=== PATIENT | female | born 1960 | race Caucasian/White ===

== ENCOUNTER → 2018-03-21 | Day surgery (SDC) | payer OTHER ==
[~2018-03-21] MED LIST: HEPARIN 1000 UNITS/ML 10 ML INJ; LIDOCAINE 1% (MDV) 20 ML INJ
== END | disposition home or self-care (01) ==
LOC: ZBAR 07:20 → SDS 11:36
DX: I12.0 Hypertensive chronic kidney disease with stage 5 chronic kidney disease or end stage renal disease (principal); N18.6 End stage renal disease
CPT/HCPCS: 36558

== ENCOUNTER 2018-04-30 10:03 | Inpatient (IN) | payer MEDICARE, MEDICAID, OTHER ==
[2018-04-30] MEDS: CEFEPIME 2GM/50 ML (PMX) 50 ML IVPB (10:30)
[2018-04-30 10:32] LABS: ADD MAN DIFF? NO
[2018-04-30 10:34] LABS: WHITE BLOOD COUNT 21.6 10^3/ul (4.8-10.8)
[2018-04-30 10:34] LABS: ABNORMAL IP MESSAGE 1; BASOPHIL # 0.1 10^3/ul (0.0-0.1); BASOPHILS % 0.4 % (0.0-2.0); EOSINOPHILS # 0.3 10^3/ul (0.0-0.5); EOSINOPHILS % 1.3 % (0.0-7.0); HEMATOCRIT 22.7 % (37.0-47.0); LYMPHOCYTES # 1.5 10^3/ul (0.8-2.9); LYMPHOCYTES % 6.9 % (15.0-51.0); MEAN CORPUSCULAR HEMOGLOBIN 28.3 pg (29.0-33.0); MEAN CORPUSCULAR HGB CONC 30.8 g/dl (32.0-37.0); MEAN CORPUSCULAR VOLUME 91.9 fl (82.0-101.0); MEAN PLATELET VOLUME 9.5 fl (7.4-10.4); MONOCYTE # 2.2 10^3/ul (0.3-0.9); MONOCYTES % 10.3 % (0.0-11.0); NEUTROPHIL # 17.3 10^3/ul (1.6-7.5); NEUTROPHILS % 79.9 % (39.0-77.0); PLATELET COUNT 295 10^3/UL (140-415); RED BLOOD COUNT 2.47 10^6/ul (4.20-5.40); RED CELL DISTRIBUTION WIDTH 18.8 % (11.5-14.5)
[2018-04-30] MEDS: SODIUM CHLORIDE 0.9% 1L BAG IV* (10:38)
[2018-04-30 10:40] LABS: POSITIVE DIFF @See below
[2018-04-30] MEDS: VANCOMYCIN 1 GM (PMX) 250 ML IVPB (10:50)
[2018-04-30 10:52] LABS: ALANINE AMINOTRANSFERASE 25 IU/L (13-69); ALBUMIN/GLOBULIN RATIO 0.75; ALKALINE PHOSPHATASE 138 IU/L (42-121); ANION GAP 10 (5-13); ASPARTATE AMINO TRANSFERASE 28 IU/L (15-46); BLOOD UREA NITROGEN 45 mg/dl (7-20); CALCIUM 9.9 mg/dl (8.4-10.2); CARBON DIOXIDE 25 mmol/L (21-31); CHLORIDE 98 mmol/L (97-110); Estimated GFR 9 mL/min (>60); GLUCOSE 119 mg/dl (70-220); POTASSIUM 3.7 mmol/L (3.5-5.1); SODIUM 133 mmol/L (135-144)
[2018-04-30 10:54] LABS: INR 1.08; PROTIME 14.1 Sec (11.9-14.9); PT RATIO 1.1
[2018-04-30 10:55] LABS: PARTIAL THROMBOPLASTIN TIME 45.2 Sec (23.0-35.0)
[2018-04-30 11:04] LABS: TROPONIN-I 0.023 ng/ml (0.000-0.120)
[2018-04-30] MEDS: SOD CHLORIDE 0.9% 500 ML IV (11:30)
[2018-04-30] MEDS ORDERED: ACETAMINOPHEN 650MG/20.3ML CUP GTB (14:30)
[2018-04-30] MEDS ORDERED: MAGNESIUM HYDROXIDE 30ML CUP GTB (14:30)
[2018-04-30] MEDS ORDERED: NACL 0.9% 3 ML SYG IV (14:30)
[2018-04-30] MEDS ORDERED: BISACODYL 10 MG SUPP PR (14:30)
[2018-04-30] MEDS ORDERED: morphine 2 MG INJ IV (14:30)
[2018-04-30] MEDS ORDERED: ONDANSETRON 4 MG INJ IV (14:30)
[2018-04-30] MEDS ORDERED: VANCOMYCIN IV PER PHARMACY XX (15:00)
[2018-04-30 16:07] LABS: IRON 17 ug/dl (35-150)
[2018-04-30 16:17] LABS: % IRON SATURATION 12 % SAT (22-52); TOTAL IRON BINDING CAPACITY 146 ug/dl (241-421)
[2018-04-30] MEDS: VANCOMYCIN 1 GM 250 ML IVPB (16:24)
[2018-04-30] MEDS ORDERED: EPOETIN 10000 UNITS/1 ML INJ (ESRD) SC (17:00)
[2018-04-30] MEDS ORDERED: EPOETIN ALFA (NESRD) 3,000 UNITS/ML VIAL SC (17:00)
[2018-04-30 19:52] LABS: HEPATITIS B SURFACE ANTIBODY NEGATIVE (NEGATIVE)
[2018-04-30 20:04] LABS: HEPATITIS B SURFACE ANTIGEN NEGATIVE (NEGATIVE)
[2018-04-30] MEDS: METOPROLOL 50 MG TAB GTB (20:10)
[2018-05-01] MEDS ORDERED: VANCOMYCIN IV PER PHARMACY XX (05:30)
[2018-05-01 06:27] LABS: ADD MAN DIFF? NO
[2018-05-01 06:34] LABS: WHITE BLOOD COUNT 13.3 10^3/ul (4.8-10.8)
[2018-05-01 06:34] LABS: BASOPHILS % 0.2 % (0.0-2.0); EOSINOPHILS # 0.6 10^3/ul (0.0-0.5); EOSINOPHILS % 4.4 % (0.0-7.0); HEMATOCRIT 24.9 % (37.0-47.0); HEMOGLOBIN 7.6 g/dl (12.0-16.0); LYMPHOCYTES % 7.4 % (15.0-51.0); MEAN CORPUSCULAR HEMOGLOBIN 28.4 pg (29.0-33.0); MEAN CORPUSCULAR HGB CONC 30.5 g/dl (32.0-37.0); MEAN CORPUSCULAR VOLUME 92.9 fl (82.0-101.0); MEAN PLATELET VOLUME 9.7 fl (7.4-10.4); MONOCYTE # 0.7 10^3/ul (0.3-0.9); MONOCYTES % 5.4 % (0.0-11.0); NEUTROPHIL # 10.8 10^3/ul (1.6-7.5); NEUTROPHILS % 81.5 % (39.0-77.0); PLATELET COUNT 331 10^3/UL (140-415); RED BLOOD COUNT 2.68 10^6/ul (4.20-5.40); RED CELL DISTRIBUTION WIDTH 19.1 % (11.5-14.5)
[2018-05-01 06:55] LABS: LACTIC ACID 0.8 mmol/L (0.5-2.0)
[2018-05-01 07:03] LABS: ALANINE AMINOTRANSFERASE 38 IU/L (13-69); ALBUMIN 2.5 g/dl (3.3-4.9); ALBUMIN/GLOBULIN RATIO 0.69; ALKALINE PHOSPHATASE 113 IU/L (42-121); ANION GAP 11 (5-13); ASPARTATE AMINO TRANSFERASE 32 IU/L (15-46); BLOOD UREA NITROGEN 55 mg/dl (7-20); CARBON DIOXIDE 23 mmol/L (21-31); CHLORIDE 101 mmol/L (97-110); CHOL/HDL RATIO 6.5 RATIO; CHOLESTEROL 117 mg/dl (100-200); CREATININE 5.53 mg/dl (0.44-1.00); Estimated GFR 8 mL/min (>60); GLUCOSE 81 mg/dl (70-220); HDL CHOLESTEROL 18 mg/dl (35-98); LDL CHOLESTEROL,CALCULATED 77 mg/dl; MAGNESIUM 2.3 mg/dl (1.7-2.5); POTASSIUM 3.9 mmol/L (3.5-5.1); SODIUM 135 mmol/L (135-144); TOTAL PROTEIN 6.1 g/dl (6.1-8.1); TRIGLYCERIDES 112 mg/dl (0-149)
[2018-05-01] MEDS: METOPROLOL 50 MG TAB GTB ×2 (09:00→20:16)
[2018-05-01] MEDS: LISINOPRIL 10 MG TAB GTB (09:00)
[2018-05-01] MEDS: MULTIVIT/CA CARB/B CMPLX/FA TAB GTB (09:50)
[2018-05-01] MEDS: FAMOTIDINE 20 MG TAB GTB (09:51)
[2018-05-01] MEDS: ASPIRIN (EC) 81 MG TAB PO (09:51)
[2018-05-01] MEDS: POLYETHYLENE GLYCOL 17 GM PACKET GTB (09:51)
[2018-05-01] MEDS ORDERED: CEFEPIME 1GM/50 ML (PMX) 50 ML IVPB (10:00)
[2018-05-01] MEDS: HEPARIN 1000 UNITS/ML 10 ML INJ CATHETER (10:12)
[2018-05-01] MEDS: CEFEPIME 2GM/50 ML (PMX) 50 ML IVPB (11:14)
[2018-05-01] MEDS: SOD FERRIC GLUC COMPLX 125 MG in SOD CHLORIDE 0.9% 100 ML IVPB (12:14)
[2018-05-01] MEDS: EPOETIN 10000 UNITS/1 ML INJ (ESRD) SC (17:30)
[2018-05-02 06:12] LABS: ADD MAN DIFF? NO
[2018-05-02 06:23] LABS: WHITE BLOOD COUNT 11.7 10^3/ul (4.8-10.8)
[2018-05-02 06:23] LABS: BASOPHILS % 0.3 % (0.0-2.0); EOSINOPHILS % 8.1 % (0.0-7.0); HEMATOCRIT 25.2 % (37.0-47.0); HEMOGLOBIN 7.8 g/dl (12.0-16.0); LYMPHOCYTES % 8.5 % (15.0-51.0); MEAN CORPUSCULAR HEMOGLOBIN 28.4 pg (29.0-33.0); MEAN CORPUSCULAR VOLUME 91.6 fl (82.0-101.0); MEAN PLATELET VOLUME 9.8 fl (7.4-10.4); MONOCYTE # 0.8 10^3/ul (0.3-0.9); MONOCYTES % 6.8 % (0.0-11.0); NEUTROPHIL # 8.8 10^3/ul (1.6-7.5); NEUTROPHILS % 75.3 % (39.0-77.0); PLATELET COUNT 365 10^3/UL (140-415); RED BLOOD COUNT 2.75 10^6/ul (4.20-5.40); RED CELL DISTRIBUTION WIDTH 18.9 % (11.5-14.5)
[2018-05-02 06:56] LABS: VANCOMYCIN,RANDOM 16.9 ug/ml
[2018-05-02 07:09] LABS: ANION GAP 12 (5-13); BLOOD UREA NITROGEN 33 mg/dl (7-20); CALCIUM 10.1 mg/dl (8.4-10.2); CARBON DIOXIDE 26 mmol/L (21-31); CHLORIDE 100 mmol/L (97-110); CREATININE 4.95 mg/dl (0.44-1.00); Estimated GFR 9 mL/min (>60); GLUCOSE 85 mg/dl (70-220); POTASSIUM 4.1 mmol/L (3.5-5.1); SODIUM 138 mmol/L (135-144)
[2018-05-02] MEDS: METOPROLOL 50 MG TAB GTB ×2 (09:00→21:19)
[2018-05-02] MEDS: LISINOPRIL 10 MG TAB GTB (09:00)
[2018-05-02] MEDS: POLYETHYLENE GLYCOL 17 GM PACKET GTB (09:44)
[2018-05-02] MEDS: ASPIRIN (EC) 81 MG TAB PO (09:44)
[2018-05-02] MEDS: MULTIVIT/CA CARB/B CMPLX/FA TAB GTB (09:44)
[2018-05-02] MEDS: FAMOTIDINE 20 MG TAB GTB (09:44)
[2018-05-02] MEDS: CEFEPIME 2GM/50 ML (PMX) 50 ML IVPB (10:12)
[2018-05-02] MEDS: SOD FERRIC GLUC COMPLX 125 MG in SOD CHLORIDE 0.9% 100 ML IVPB (13:28)
[2018-05-02] MEDS: VANCOMYCIN HCL 1.25 GM in SOD CHLORIDE 0.9% 250 ML IVPB (15:47)
[2018-05-03 06:06] LABS: ADD MAN DIFF? NO
[2018-05-03 06:39] LABS: WHITE BLOOD COUNT 11.2 10^3/ul (4.8-10.8)
[2018-05-03 06:39] LABS: BASOPHILS % 0.3 % (0.0-2.0); EOSINOPHILS # 1.2 10^3/ul (0.0-0.5); EOSINOPHILS % 10.4 % (0.0-7.0); HEMATOCRIT 26.9 % (37.0-47.0); HEMOGLOBIN 8.2 g/dl (12.0-16.0); MEAN CORPUSCULAR HEMOGLOBIN 28.3 pg (29.0-33.0); MEAN CORPUSCULAR HGB CONC 30.5 g/dl (32.0-37.0); MEAN CORPUSCULAR VOLUME 92.8 fl (82.0-101.0); MEAN PLATELET VOLUME 9.9 fl (7.4-10.4); MONOCYTE # 0.6 10^3/ul (0.3-0.9); MONOCYTES % 5.7 % (0.0-11.0); NEUTROPHIL # 8.1 10^3/ul (1.6-7.5); NEUTROPHILS % 72.7 % (39.0-77.0); NUCLEATED RED BLOOD CELLS% 0.2 /100WBC (0.0-0.0); PLATELET COUNT 388 10^3/UL (140-415); RED CELL DISTRIBUTION WIDTH 18.8 % (11.5-14.5)
[2018-05-03 07:18] LABS: ANION GAP 9 (5-13); BLOOD UREA NITROGEN 22 mg/dl (7-20); CALCIUM 9.9 mg/dl (8.4-10.2); CARBON DIOXIDE 26 mmol/L (21-31); CHLORIDE 99 mmol/L (97-110); CREATININE 4.17 mg/dl (0.44-1.00); Estimated GFR 11 mL/min (>60); GLUCOSE 97 mg/dl (70-220); PHOSPHORUS 3.5 mg/dl (2.5-4.9); POTASSIUM 3.9 mmol/L (3.5-5.1); SODIUM 134 mmol/L (135-144)
[2018-05-03] MEDS: MULTIVIT/CA CARB/B CMPLX/FA TAB GTB (09:21)
[2018-05-03] MEDS: POLYETHYLENE GLYCOL 17 GM PACKET GTB (09:21)
[2018-05-03] MEDS: FAMOTIDINE 20 MG TAB GTB (09:21)
[2018-05-03] MEDS: ASPIRIN (EC) 81 MG TAB PO (09:21)
[2018-05-03] MEDS: METOPROLOL 50 MG TAB GTB ×2 (09:23→21:49)
[2018-05-03] MEDS: LISINOPRIL 10 MG TAB GTB (09:24)
[2018-05-03] MEDS: CEFEPIME 2GM/50 ML (PMX) 50 ML IVPB (10:49)
[2018-05-03] MEDS: SOD FERRIC GLUC COMPLX 125 MG in SOD CHLORIDE 0.9% 100 ML IVPB (13:00)
[2018-05-03] MEDS: EPOETIN 10000 UNITS/1 ML INJ (ESRD) SC (17:23)
[2018-05-04] MEDS: LISINOPRIL 10 MG TAB GTB (09:00)
[2018-05-04] MEDS: METOPROLOL 50 MG TAB GTB ×2 (09:00→20:36)
[2018-05-04] MEDS: ASPIRIN (EC) 81 MG TAB PO (09:14)
[2018-05-04] MEDS: MULTIVIT/CA CARB/B CMPLX/FA TAB GTB (09:14)
[2018-05-04] MEDS: FAMOTIDINE 20 MG TAB GTB (09:14)
[2018-05-04] MEDS: CEFEPIME 2GM/50 ML (PMX) 50 ML IVPB (09:15)
[2018-05-04] MEDS: POLYETHYLENE GLYCOL 17 GM PACKET GTB (09:15)
[2018-05-04] MEDS: SOD FERRIC GLUC COMPLX 125 MG in SOD CHLORIDE 0.9% 100 ML IVPB (13:42)
[2018-05-04] MEDS: HEPARIN 1000 UNITS/ML 10 ML INJ CATHETER (19:25)
[2018-05-05] MEDS: MULTIVIT/CA CARB/B CMPLX/FA TAB GTB (09:00)
[2018-05-05] MEDS: POLYETHYLENE GLYCOL 17 GM PACKET GTB (09:00)
[2018-05-05] MEDS: FAMOTIDINE 20 MG TAB GTB (09:40)
[2018-05-05] MEDS: ASPIRIN (EC) 81 MG TAB PO (09:40)
[2018-05-05] MEDS: METOPROLOL 50 MG TAB GTB ×2 (09:40→20:19)
[2018-05-05] MEDS: LISINOPRIL 10 MG TAB GTB (09:41)
[2018-05-05] MEDS: CEFEPIME 2GM/50 ML (PMX) 50 ML IVPB (10:38)
[2018-05-05] MEDS: SOD FERRIC GLUC COMPLX 125 MG in SOD CHLORIDE 0.9% 100 ML IVPB (12:05)
[2018-05-05] MEDS: VANCOMYCIN 1 GM 250 ML IVPB (13:31)
[2018-05-05] MEDS: AMPICILLIN 1 GM/NS (PMX) 50 ML IVPB (18:48)
[2018-05-06] MEDS: AMPICILLIN 1 GM/NS (PMX) 50 ML IVPB ×4 (00:08→17:09)
[2018-05-06] MEDS: FAMOTIDINE 20 MG TAB GTB (08:42)
[2018-05-06] MEDS: ASPIRIN (EC) 81 MG TAB PO (08:42)
[2018-05-06] MEDS: MULTIVIT/CA CARB/B CMPLX/FA TAB GTB (08:42)
[2018-05-06] MEDS: LISINOPRIL 10 MG TAB GTB (08:43)
[2018-05-06] MEDS: METOPROLOL 50 MG TAB GTB ×2 (08:43→21:29)
[2018-05-06] MEDS: POLYETHYLENE GLYCOL 17 GM PACKET GTB (08:43)
[2018-05-06] MEDS: HEPARIN 1000 UNITS/ML 10 ML INJ CATHETER (14:13)
[2018-05-06] MEDS: EPOETIN 10000 UNITS/1 ML INJ (ESRD) SC (17:09)
[2018-05-07] MEDS: AMPICILLIN 1 GM/NS (PMX) 50 ML IVPB ×4 (00:02→18:36)
[2018-05-07 05:11] LABS: ADD MAN DIFF? NO
[2018-05-07 05:17] LABS: WHITE BLOOD COUNT 11.2 10^3/ul (4.8-10.8)
[2018-05-07 05:17] LABS: BASOPHILS % 0.3 % (0.0-2.0); EOSINOPHILS # 1.7 10^3/ul (0.0-0.5); EOSINOPHILS % 14.8 % (0.0-7.0); HEMATOCRIT 30.5 % (37.0-47.0); HEMOGLOBIN 9.1 g/dl (12.0-16.0); LYMPHOCYTES # 1.7 10^3/ul (0.8-2.9); LYMPHOCYTES % 15.2 % (15.0-51.0); MEAN CORPUSCULAR HEMOGLOBIN 27.7 pg (29.0-33.0); MEAN CORPUSCULAR HGB CONC 29.8 g/dl (32.0-37.0); MEAN CORPUSCULAR VOLUME 92.7 fl (82.0-101.0); MEAN PLATELET VOLUME 9.6 fl (7.4-10.4); MONOCYTE # 0.6 10^3/ul (0.3-0.9); MONOCYTES % 5.1 % (0.0-11.0); NEUTROPHILS % 62.3 % (39.0-77.0); PLATELET COUNT 391 10^3/UL (140-415); RED BLOOD COUNT 3.29 10^6/ul (4.20-5.40); RED CELL DISTRIBUTION WIDTH 19.6 % (11.5-14.5)
[2018-05-07 05:52] LABS: ANION GAP 16 (5-13); BLOOD UREA NITROGEN 15 mg/dl (7-20); CALCIUM 10.8 mg/dl (8.4-10.2); CARBON DIOXIDE 22 mmol/L (21-31); CHLORIDE 98 mmol/L (97-110); CREATININE 5.49 mg/dl (0.44-1.00); Estimated GFR 8 mL/min (>60); GLUCOSE 83 mg/dl (70-220); MAGNESIUM 2.1 mg/dl (1.7-2.5); PHOSPHORUS 5.3 mg/dl (2.5-4.9); POTASSIUM 3.9 mmol/L (3.5-5.1); SODIUM 136 mmol/L (135-144)
[2018-05-07] MEDS: METOPROLOL 50 MG TAB GTB ×2 (08:54→20:51)
[2018-05-07] MEDS: MULTIVIT/CA CARB/B CMPLX/FA TAB GTB (08:54)
[2018-05-07] MEDS: LISINOPRIL 10 MG TAB GTB (08:54)
[2018-05-07] MEDS: FAMOTIDINE 20 MG TAB GTB (08:54)
[2018-05-07] MEDS: ASPIRIN (EC) 81 MG TAB PO (08:54)
[2018-05-07] MEDS: POLYETHYLENE GLYCOL 17 GM PACKET GTB (08:55)
[2018-05-08] MEDS: AMPICILLIN 1 GM/NS (PMX) 50 ML IVPB ×4 (00:15→17:42)
[2018-05-08 05:38] LABS: ADD MAN DIFF? NO
[2018-05-08 05:44] LABS: BASOPHILS % 0.4 % (0.0-2.0); EOSINOPHILS # 1.9 10^3/ul (0.0-0.5); EOSINOPHILS % 17.7 % (0.0-7.0); LYMPHOCYTES # 2.2 10^3/ul (0.8-2.9); LYMPHOCYTES % 21.1 % (15.0-51.0); MEAN CORPUSCULAR HEMOGLOBIN 27.9 pg (29.0-33.0); MEAN CORPUSCULAR VOLUME 92.9 fl (82.0-101.0); MEAN PLATELET VOLUME 9.6 fl (7.4-10.4); MONOCYTE # 0.4 10^3/ul (0.3-0.9); MONOCYTES % 3.9 % (0.0-11.0); NEUTROPHIL # 5.8 10^3/ul (1.6-7.5); NEUTROPHILS % 55.4 % (39.0-77.0); PLATELET COUNT 406 10^3/UL (140-415); RED BLOOD COUNT 3.23 10^6/ul (4.20-5.40); RED CELL DISTRIBUTION WIDTH 19.2 % (11.5-14.5)
[2018-05-08 05:44] LABS: WHITE BLOOD COUNT 10.5 10^3/ul (4.8-10.8)
[2018-05-08 06:19] LABS: ANION GAP 17 (5-13); BLOOD UREA NITROGEN 21 mg/dl (7-20); CALCIUM 10.9 mg/dl (8.4-10.2); CARBON DIOXIDE 20 mmol/L (21-31); CHLORIDE 100 mmol/L (97-110); CREATININE 7.41 mg/dl (0.44-1.00); Estimated GFR 6 mL/min (>60); GLUCOSE 74 mg/dl (70-220); MAGNESIUM 2.1 mg/dl (1.7-2.5); PHOSPHORUS 6.1 mg/dl (2.5-4.9); POTASSIUM 3.8 mmol/L (3.5-5.1); SODIUM 137 mmol/L (135-144)
[2018-05-08] MEDS: ASPIRIN (EC) 81 MG TAB PO (09:00)
[2018-05-08] MEDS: POLYETHYLENE GLYCOL 17 GM PACKET GTB (09:00)
[2018-05-08] MEDS: LISINOPRIL 10 MG TAB GTB (09:00)
[2018-05-08] MEDS: MULTIVIT/CA CARB/B CMPLX/FA TAB GTB (09:00)
[2018-05-08] MEDS: METOPROLOL 50 MG TAB GTB ×2 (09:00→21:00)
[2018-05-08] MEDS: FAMOTIDINE 20 MG TAB GTB (09:00)
[2018-05-08] MEDS: EPOETIN 10000 UNITS/1 ML INJ (ESRD) SC (17:42)
[2018-05-09] MEDS: AMPICILLIN 1 GM/NS (PMX) 50 ML IVPB ×4 (00:11→17:35)
[2018-05-09] MEDS: FAMOTIDINE 20 MG TAB GTB (09:00)
[2018-05-09] MEDS: METOPROLOL 50 MG TAB GTB ×2 (09:00→21:00)
[2018-05-09] MEDS: ASPIRIN (EC) 81 MG TAB PO (09:00)
[2018-05-09] MEDS: POLYETHYLENE GLYCOL 17 GM PACKET GTB (09:00)
[2018-05-09] MEDS: MULTIVIT/CA CARB/B CMPLX/FA TAB GTB (09:00)
[2018-05-09] MEDS: LISINOPRIL 10 MG TAB GTB (09:00)
[2018-05-09 09:13] LABS: ADD MAN DIFF? NO
[2018-05-09 09:19] LABS: BASOPHILS % 0.5 % (0.0-2.0); EOSINOPHILS # 1.4 10^3/ul (0.0-0.5); EOSINOPHILS % 15.4 % (0.0-7.0); HEMATOCRIT 29.5 % (37.0-47.0); HEMOGLOBIN 8.9 g/dl (12.0-16.0); LYMPHOCYTES # 1.5 10^3/ul (0.8-2.9); LYMPHOCYTES % 17.1 % (15.0-51.0); MEAN CORPUSCULAR HEMOGLOBIN 28.1 pg (29.0-33.0); MEAN CORPUSCULAR HGB CONC 30.2 g/dl (32.0-37.0); MEAN CORPUSCULAR VOLUME 93.1 fl (82.0-101.0); MEAN PLATELET VOLUME 9.3 fl (7.4-10.4); MONOCYTE # 0.4 10^3/ul (0.3-0.9); MONOCYTES % 4.6 % (0.0-11.0); NEUTROPHIL # 5.4 10^3/ul (1.6-7.5); NEUTROPHILS % 61.6 % (39.0-77.0); PLATELET COUNT 368 10^3/UL (140-415); RED BLOOD COUNT 3.17 10^6/ul (4.20-5.40); RED CELL DISTRIBUTION WIDTH 19.1 % (11.5-14.5)
[2018-05-09 09:19] LABS: WHITE BLOOD COUNT 8.8 10^3/ul (4.8-10.8)
[2018-05-09 09:33] LABS: ANION GAP 16 (5-13); BLOOD UREA NITROGEN 26 mg/dl (7-20); CALCIUM 10.8 mg/dl (8.4-10.2); CARBON DIOXIDE 19 mmol/L (21-31); CHLORIDE 101 mmol/L (97-110); CREATININE 9.03 mg/dl (0.44-1.00); Estimated GFR 4 mL/min (>60); GLUCOSE 84 mg/dl (70-220); MAGNESIUM 2.1 mg/dl (1.7-2.5); SODIUM 136 mmol/L (135-144)
[2018-05-09] MEDS: SOD CHLORIDE 0.9% 100 ML (12:25)
[2018-05-09] MEDS: HEPARIN 1000 UNITS/ML 10 ML INJ (12:25)
[2018-05-09] MEDS: HEPARIN 1000 UNITS/ML 10 ML INJ CATHETER (23:25)
[2018-05-09] MEDS: LEVETIRACETAM 500 MG TAB PO (23:56)
[2018-05-10] MEDS: AMPICILLIN 1 GM/NS (PMX) 50 ML IVPB ×4 (00:16→22:10)
[2018-05-10] MEDS: MULTIVIT/CA CARB/B CMPLX/FA TAB GTB (08:26)
[2018-05-10] MEDS: ASPIRIN (EC) 81 MG TAB PO (08:26)
[2018-05-10] MEDS: FAMOTIDINE 20 MG TAB GTB (08:26)
[2018-05-10] MEDS: LEVETIRACETAM 500 MG TAB PO ×2 (08:26→22:18)
[2018-05-10] MEDS: POLYETHYLENE GLYCOL 17 GM PACKET GTB (08:26)
[2018-05-10] MEDS: METOPROLOL 50 MG TAB GTB ×2 (08:27→21:00)
[2018-05-10] MEDS: LISINOPRIL 10 MG TAB GTB (08:27)
[2018-05-10] MEDS: SEVELAMER CARBONATE 0.8 GM PKT NGT ×2 (11:44→17:28)
[2018-05-10] MEDS: EPOETIN 10000 UNITS/1 ML INJ (ESRD) SC (17:28)
[2018-05-10] MEDS: LORAZEPAM 0.5 MG TAB GTB (22:18)
[2018-05-11] MEDS: AMPICILLIN 1 GM/NS (PMX) 50 ML IVPB ×3 (05:41→21:13)
[2018-05-11] MEDS: FAMOTIDINE 20 MG TAB GTB (08:22)
[2018-05-11] MEDS: LEVETIRACETAM 500 MG TAB PO (08:22)
[2018-05-11] MEDS: LISINOPRIL 10 MG TAB GTB (08:23)
[2018-05-11] MEDS: MULTIVIT/CA CARB/B CMPLX/FA TAB GTB (08:23)
[2018-05-11] MEDS: ASPIRIN (EC) 81 MG TAB PO (08:23)
[2018-05-11] MEDS: POLYETHYLENE GLYCOL 17 GM PACKET GTB (08:23)
[2018-05-11] MEDS: METOPROLOL 50 MG TAB GTB ×2 (08:23→20:14)
[2018-05-11] MEDS: SEVELAMER CARBONATE 0.8 GM PKT NGT ×3 (08:23→17:36)
[2018-05-11] MEDS: hydrOXYzine HCL 25 MG TAB GTB (09:51)
[2018-05-11] MEDS: ALBUMIN HUMAN 25% 100 ML IV (11:46)
[2018-05-11] MEDS: HEPARIN 1000 UNITS/ML 10 ML INJ CATHETER (11:48)
[2018-05-11] MEDS: HEPARIN 5,000 UNIT/1 ML VIAL SC (20:22)
[2018-05-12] MEDS: AMPICILLIN 1 GM/NS (PMX) 50 ML IVPB ×3 (06:18→22:00)
[2018-05-12] MEDS: POLYETHYLENE GLYCOL 17 GM PACKET GTB (09:00)
[2018-05-12] MEDS: HEPARIN 5,000 UNIT/1 ML VIAL SC ×2 (09:00→21:26)
[2018-05-12] MEDS: ASPIRIN (EC) 81 MG TAB PO (09:00)
[2018-05-12] MEDS: MULTIVIT/CA CARB/B CMPLX/FA TAB GTB (09:23)
[2018-05-12] MEDS: FAMOTIDINE 20 MG TAB GTB (09:23)
[2018-05-12] MEDS: SEVELAMER CARBONATE 0.8 GM PKT NGT ×3 (09:23→18:10)
[2018-05-12] MEDS: METOPROLOL 50 MG TAB GTB ×2 (09:31→21:16)
[2018-05-12] MEDS: LIDOCAINE 1% (MDV) 20 ML INJ ×2 (11:03)
[2018-05-12] MEDS: FENTAnyl 50 MCG/ML VIAL (11:03)
[2018-05-12] MEDS: HEPARIN 1000 UNITS/ML 10 ML INJ (11:08)
[2018-05-12 16:40] LABS: ADD MAN DIFF? NO
[2018-05-12 16:43] LABS: WHITE BLOOD COUNT 5.9 10^3/ul (4.8-10.8)
[2018-05-12 16:43] LABS: BASOPHILS % 0.5 % (0.0-2.0); EOSINOPHILS # 1.2 10^3/ul (0.0-0.5); EOSINOPHILS % 20.3 % (0.0-7.0); HEMATOCRIT 32.4 % (37.0-47.0); HEMOGLOBIN 9.6 g/dl (12.0-16.0); LYMPHOCYTES # 1.4 10^3/ul (0.8-2.9); LYMPHOCYTES % 23.9 % (15.0-51.0); MEAN CORPUSCULAR HEMOGLOBIN 28.3 pg (29.0-33.0); MEAN CORPUSCULAR HGB CONC 29.6 g/dl (32.0-37.0); MEAN CORPUSCULAR VOLUME 95.6 fl (82.0-101.0); MEAN PLATELET VOLUME 9.6 fl (7.4-10.4); MONOCYTE # 0.4 10^3/ul (0.3-0.9); MONOCYTES % 6.7 % (0.0-11.0); NEUTROPHIL # 2.8 10^3/ul (1.6-7.5); NEUTROPHILS % 48.3 % (39.0-77.0); PLATELET COUNT 358 10^3/UL (140-415); RED BLOOD COUNT 3.39 10^6/ul (4.20-5.40); RED CELL DISTRIBUTION WIDTH 19.4 % (11.5-14.5)
[2018-05-12 16:50] LABS: POSITIVE DIFF @See below
[2018-05-12 17:06] LABS: ANION GAP 13 (5-13); BLOOD UREA NITROGEN 8 mg/dl (7-20); CALCIUM 10.3 mg/dl (8.4-10.2); CARBON DIOXIDE 30 mmol/L (21-31); CHLORIDE 95 mmol/L (97-110); CREATININE 5.67 mg/dl (0.44-1.00); Estimated GFR 8 mL/min (>60); GLUCOSE 70 mg/dl (70-220); POTASSIUM 3.6 mmol/L (3.5-5.1); SODIUM 138 mmol/L (135-144)
[2018-05-12 17:07] LABS: PHOSPHORUS 4.8 mg/dl (2.5-4.9)
[2018-05-13] MEDS: AMPICILLIN 1 GM/NS (PMX) 50 ML IVPB ×3 (06:04→21:17)
[2018-05-13] MEDS: METOPROLOL 50 MG TAB GTB ×2 (09:00→21:08)
[2018-05-13] MEDS: FAMOTIDINE 20 MG TAB GTB (09:02)
[2018-05-13] MEDS: ASPIRIN (EC) 81 MG TAB PO (09:02)
[2018-05-13] MEDS: SEVELAMER CARBONATE 0.8 GM PKT NGT ×3 (09:02→17:15)
[2018-05-13] MEDS: MULTIVIT/CA CARB/B CMPLX/FA TAB GTB (09:03)
[2018-05-13] MEDS: POLYETHYLENE GLYCOL 17 GM PACKET GTB (09:03)
[2018-05-13] MEDS: HEPARIN 5,000 UNIT/1 ML VIAL SC ×2 (09:05→21:09)
[2018-05-13] MEDS: ALBUMIN HUMAN 25% 100 ML IV ×2 (11:36→12:14)
[2018-05-13] MEDS: HEPARIN 1000 UNITS/ML 10 ML INJ CATHETER (13:08)
[2018-05-13] MEDS: EPOETIN 10000 UNITS/1 ML INJ (ESRD) SC (17:17)
[2018-05-14] MEDS: AMPICILLIN 1 GM/NS (PMX) 50 ML IVPB ×2 (06:00→16:52)
[2018-05-14] MEDS: POLYETHYLENE GLYCOL 17 GM PACKET GTB (09:49)
[2018-05-14] MEDS: MULTIVIT/CA CARB/B CMPLX/FA TAB GTB (09:49)
[2018-05-14] MEDS: SEVELAMER CARBONATE 0.8 GM PKT NGT ×3 (09:49→17:20)
[2018-05-14] MEDS: HEPARIN 5,000 UNIT/1 ML VIAL SC ×2 (09:49→20:19)
[2018-05-14] MEDS: METOPROLOL 50 MG TAB GTB ×2 (09:50→20:17)
[2018-05-14] MEDS: ASPIRIN (EC) 81 MG TAB PO (09:50)
[2018-05-14] MEDS: FAMOTIDINE 20 MG TAB GTB (09:50)
== END 2018-05-14 20:50 | DRG 314 ==
LOC: 2NE 05-05 00:26 → TEL 05-10 00:05 → 5EC 05-13 03:29 → E/R 10:03 → 6WM 11:51
PROC: 5A1D70Z Performance of Urinary Filtration, Intermittent, Less than 6 Hours Per Day (ICD-10-PCS; 2018-05-01)
PROC: 5A1D70Z Performance of Urinary Filtration, Intermittent, Less than 6 Hours Per Day (ICD-10-PCS; 2018-05-02)
PROC: 5A1D70Z Performance of Urinary Filtration, Intermittent, Less than 6 Hours Per Day (ICD-10-PCS; 2018-05-04)
PROC: 05PY33Z Removal of Infusion Device from Upper Vein, Percutaneous Approach (ICD-10-PCS; 2018-05-07)
PROC: 02HV33Z Insertion of Infusion Device into Superior Vena Cava, Percutaneous Approach (ICD-10-PCS; principal; 2018-05-09)
PROC: B54MZZA Ultrasonography of Right Upper Extremity Veins, Guidance (ICD-10-PCS; 2018-05-09)
PROC: B518ZZA Fluoroscopy of Superior Vena Cava, Guidance (ICD-10-PCS; 2018-05-09)
PROC: 02PY33Z Removal of Infusion Device from Great Vessel, Percutaneous Approach (ICD-10-PCS; 2018-05-12)
PROC: 02H633Z Insertion of Infusion Device into Right Atrium, Percutaneous Approach (ICD-10-PCS; 2018-05-12)
PROC: B518ZZA Fluoroscopy of Superior Vena Cava, Guidance (ICD-10-PCS; 2018-05-12)
DX: T80.211A Bloodstream infection due to central venous catheter, initial encounter (principal); N18.6 End stage renal disease; A41.81 Sepsis due to Enterococcus; G92 Toxic encephalopathy; E87.1 Hypo-osmolality and hyponatremia; I12.0 Hypertensive chronic kidney disease with stage 5 chronic kidney disease or end stage renal disease; G93.1 Anoxic brain damage, not elsewhere classified; E66.01 Morbid (severe) obesity due to excess calories; R13.10 Dysphagia, unspecified; K21.9 Gastro-esophageal reflux disease without esophagitis; E83.52 Hypercalcemia; I49.9 Cardiac arrhythmia, unspecified; D63.1 Anemia in chronic kidney disease; R55 Syncope and collapse; F41.9 Anxiety disorder, unspecified; Z99.2 Dependence on renal dialysis; Z68.37 Body mass index [BMI] 37.0-37.9, adult; Z86.73 Personal history of transient ischemic attack (TIA), and cerebral infarction without residual deficits; Z93.1 Gastrostomy status; Z79.82 Long term (current) use of aspirin; Z95.0 Presence of cardiac pacemaker
CPT/HCPCS: 36415; 36556; 36558; 36589; 70450; 71045; 76942; 80048; 80053; 80061; 80202; 82728; 82962; 83540; 83605; 83735; 84100; 84484; 85025; 85610; 85730; 86706; 86850; 86900; 86901; 87040; 87340; 90935; 92526; 92610; 93005; 93306; 95819; 96374; 96375; 97116; 97162; 97530; 99285-25